=== PATIENT | male | born 1980 | race Caucasian/White ===

== ENCOUNTER 2019-01-31 04:56 | Emergency (ER) | payer MEDICAID ==
[~2019-01-31] VITALS: Ht 175.3 cm; Wt 68.0 kg
[2019-01-31 05:28] LABS: MICROSCOPIC NOT IND
[2019-01-31 05:29] LABS: CULTURE INDICATED? NO
[2019-01-31] MEDS ORDERED: ONDANSETRON 2MG/ML, 2ML IVPush ONE (05:30)
[2019-01-31] MEDS ORDERED: SODIUM CHLORIDE FLUSH 10ML SYR IVF ONE (05:30)
[2019-01-31] MEDS ORDERED: FAMOTIDINE 20 MG/2 ML IVP ONE (05:30)
[2019-01-31] MEDS ORDERED: MORPHINE SULFATE 4 MG/ML, 1ML IVPush PRN (05:30)
[2019-01-31] MEDS ORDERED: MORPHINE SULFATE 4 MG/ML, 1ML ONE (05:32)
[2019-01-31] MEDS ORDERED: FAMOTIDINE 20 MG/2 ML ONE (05:32)
[2019-01-31] MEDS ORDERED: ONDANSETRON 2MG/ML, 2ML ONE (05:32)
--- NOTE | 2019-01-31 05:46 | NUR ---
PT IN GOWN IN [facility]. PT MEDICATED PER MAR FOR PAIN. LABS DRAWN AFTER IV ACCESS ESTABLISHED. PT VERBALIZES UNDERSTANDING OF ER PROCESS AND POC. PT HAS CALL LIGHT WITHIN REACH AT THIS TIME.
[2019-01-31 05:48] LABS: MEAN CORPUSCULAR HEMOGLOBIN 28.9 pg (27.5-34.5); MEAN CORPUSCULAR HGB CONC 32.7 g/dL (33.2-36.2); MEAN CORPUSCULAR VOLUME 88.2 fL (81-97); MEAN PLATELET VOLUME 6.5 fL (7.4-10.4); PLATELET COUNT 252 x10^3/uL (130-400); RED BLOOD COUNT 3.67 x10^6/uL (4.38-5.82); RED CELL DISTRIBUTION WIDTH 22.1 % (9.4-14.8)
[2019-01-31 06:01] VITALS: BP 114/71
[2019-01-31 06:02] LABS: ALBUMIN 2.7 g/dL (3.4-5.0); ANION GAP 7 mmol/L (5-15); CALCIUM 8.4 mg/dL (8.5-10.1); CHLORIDE 104 mmol/L (98-107)
[2019-01-31 06:05] LABS: ALANINE AMINOTRANSFERASE 19 U/L (12-78); ALKALINE PHOSPHATASE 135 U/L (45-117); BILIRUBIN,TOTAL 0.3 mg/dL (0.2-1.0); CREATININE 1.07 mg/dL (0.7-1.3); TOTAL PROTEIN 8.3 g/dL (6.4-8.2)
[2019-01-31 06:08] LABS: BASOPHILS # (AUTO) 0.06 x10^3/uL (0-0.1); BASOPHILS % (AUTO) 1 % (0-1); EOSINOPHILS # (AUTO) 0.18 x10^3/uL (0-0.4); EOSINOPHILS % (AUTO) 3 % (1-7); LYMPHOCYTES # (AUTO) 1.09 x10^3/uL (1-3.4); LYMPHOCYTES % (AUTO) 20 % (22-44); MD SCAN; MONOCYTES # (AUTO) 0.42 x10^3/uL (0.2-0.8); MONOCYTES % (AUTO) 8 % (2-9); NEUTROPHILS % (AUTO) 67 % (42-75)
--- NOTE | 2019-01-31 06:36 | NUR ---
PT ASLEEP IN [facility] AT THIS TIME;
== END 2019-01-31 07:36 | disposition home or self-care (01) ==
LOC: ED 06:42
DX: R10.13 Epigastric pain (principal); D63.8 Anemia in other chronic diseases classified elsewhere; Z86.19 Personal history of other infectious and parasitic diseases
CPT/HCPCS: 36415; 76700; 80053; 81003; 83690; 85025; 96374; 96375; 99284; J2270; J2405; J3490

== ENCOUNTER 2019-04-08 12:45 | Emergency (ER) | payer SELFPAY ==
[~2019-04-08] VITALS: Ht 175.3 cm; Wt 75.4 kg
[2019-04-08 13:09] VITALS: BP 133/89
== END 2019-04-08 15:00 | disposition home or self-care (01) ==
LOC: ED 14:54
DX: S52.125A Nondisplaced fracture of head of left radius, initial encounter for closed fracture (principal); Z21 Asymptomatic human immunodeficiency virus [HIV] infection status; V10.4XXA Pedal cycle driver injured in collision with pedestrian or animal in traffic accident, initial encounter; Y93.89 Activity, other specified; Y92.89 Other specified places as the place of occurrence of the external cause; Y99.8 Other external cause status
CPT/HCPCS: 29125; 99283